=== PATIENT | male | born 1980 | race Caucasian/White ===

== ENCOUNTER 2017-04-17 13:29 | Outpatient (CLI) | payer MEDICAID | END 2017-04-17 23:59 | disposition home or self-care (01) | LOC: RAD 13:29 | PROVIDERS: ATTEND Nurse Practitioner Family | DX: R10.13 Epigastric pain (principal) | CPT/HCPCS: 76700 ==

== ENCOUNTER 2017-04-20 07:54 | Emergency (ER) | payer MEDICAID ==
[~2017-04-20] VITALS: Ht 188 cm; Wt 91.0 kg
[2017-04-20] MEDS ORDERED: iohexol 350MG/ML 100ml bottle IV ONE (09:14)
[2017-04-20] MEDS ORDERED: diatrozoate meglu/diatrozoate sod (37% iodine) 120ML oral solution PO ONE (09:25)
[2017-04-20] MEDS ORDERED: diatrozoate meglu/diatrozoate sod (37% iodine) 120ML oral solution ONE (09:31)
[2017-04-20] MEDS ORDERED: diatr meglu/diatrizoate 30ml oral sol.-(3 dose) bottle PO ONE (09:35)
[2017-04-20] MEDS ORDERED: diphenhydrAMINE 50 mg/ml inj IV ONE (09:55)
[2017-04-20] MEDS ORDERED: dexamethasone sod phosphate 10mg/ml inj IV STA (10:20)
[2017-04-20] MEDS ORDERED: famotidine/PF 10 mg/ml inj IV ONE (10:20)
[2017-04-20] MEDS ORDERED: predniSONE 20 mg tablet PO ONE (10:45)
[2017-04-20 12:15] VITALS: BP 104/58
[2017-04-21] MEDS ORDERED: prednisone 10mg tablet PO SCH (08:00)
== END 2017-04-20 12:47 | disposition home or self-care (01) ==
LOC: ER 07:55
DX: R10.13 Epigastric pain (principal)
CPT/HCPCS: 71250; 93978; 96374; 99284; J1200; J3490; J7030; J7512; Q9963; Q9967; J1100

== ENCOUNTER 2017-07-10 10:42 | Emergency (ER) | payer MEDICAID ==
[~2017-07-10] VITALS: Ht 198.1 cm; Wt 92.0 kg
[2017-07-10 11:25] LABS: BASOPHILS % (AUTO) 0.7 % (0-1); EOSINOPHILS # (AUTO) 0.1 X10'3 (0-0.9); EOSINOPHILS % (AUTO) 2.1 % (0-6); HEMATOCRIT 44.7 % (42.0-52.0); HEMOGLOBIN 15.6 g/dl (14.0-17.9); LYMPHOCYTES # (AUTO) 3.2 X10'3 (1.1-4.8); LYMPHOCYTES % (AUTO) 45.8 % (21-51); MEAN CORPUSCULAR HEMOGLOBIN 30.4 PG (27.0-31.0); MEAN CORPUSCULAR HGB CONC 34.9 % (33.0-36.5); MEAN CORPUSCULAR VOLUME 87.2 FL (78-98); MEAN PLATELET VOLUME 8.2 FL (7.4-10.4); MONOCYTES # (AUTO) 0.6 X10'3 (0-0.9); MONOCYTES % (AUTO) 7.8 % (2-12); NEUTROPHILS # (AUTO) 3.1 X10'3 (1.8-7.7); NEUTROPHILS % (AUTO) 43.6 % (42-75); PLATELET COUNT 209 X10'3 (140-440); RED BLOOD COUNT 5.13 X10'6 (4.70-6.10); RED CELL DISTRIBUTION WIDTH 13.7 % (11.5-14.5); WHITE BLOOD COUNT 7.1 X10'3 (4.5-11.0)
[2017-07-10 11:35] LABS: INR 1.1 INR; PROTHROMBIN TIME 11.2 SECONDS (9.0-12.0)
[2017-07-10 11:41] LABS: ALANINE AMINOTRANSFERASE 34 U/L (12-78); ALBUMIN 4.7 G/DL (3.4-5.0); ALBUMIN/GLOBULIN RATIO 1.5 (1.1-1.5); ALKALINE PHOSPHATASE 57 IU/L (46-116); AMYLASE 51 U/L (25-115); ANION GAP 7 (8-16); ASPARTATE AMINO TRANSFERASE 23 U/L (10-37); BLOOD UREA NITROGEN 20 MG/DL (7-18); BUN/CREATININE RATIO 20.8 (5.4-32.0); CALCIUM 9.5 MG/DL (8.5-10.1); CHLORIDE 105 MMOL/L (99-107); CREATININE 0.96 MG/DL (0.60-1.10); GLUCOSE 92 MG/DL (70-104); LIPASE 136 U/L (73-393); POTASSIUM 4.2 MMOL/L (3.5-5.1); SODIUM 142 MMOL/L (135-145); TOTAL CARBON DIOXIDE 30.5 MMOL/L (24-32); TOTAL PROTEIN 7.8 G/DL (6.4-8.2); eGFR 88 ML/MIN
[2017-07-10] MEDS ORDERED: DICY10CA88 PO (12:21)
[2017-07-10] MEDS ORDERED: SUCR1ORA2 PO (12:21)
[2017-07-10 12:36] LABS: CLARITY,URINE CLEAR (Clear); COLOR,URINE YELLOW (Yellow); GLUCOSE, URINE NEGATIVE (Neg); KETONES,URINE NEGATIVE (Neg); LEUKOCYTE ESTERASE ,URINE NEGATIVE (Neg); NITRITES, URINE NEGATIVE (Neg); OCCULT BLOOD,URINE NEGATIVE (Neg); PROTEIN,URINE NEGATIVE (Neg); UROBILINOGEN,URINE 0.2 E.U/dL (0.2-1.0)
[2017-07-10 12:39] LABS: UA COLLECTION TYPE CLN CATCH MIDSTREAM
[2017-07-10 12:45] VITALS: BP 110/56
== END 2017-07-10 12:50 | disposition home or self-care (01) ==
LOC: ER 10:42
DX: R10.13 Epigastric pain (principal)
CPT/HCPCS: 36415; 74176; 76700; 80053; 81003; 82150; 83690; 85025; 85610; 99285

== ENCOUNTER 2017-07-24 07:15 | Emergency (ER) | payer MEDICAID ==
[~2017-07-24] VITALS: Ht 6206.4 cm; Wt 91.0 kg
[~2017-07-24 07:15] MED LIST: DICY10CA88 PO; SUCR1ORA2 PO
[2017-07-24] MEDS ORDERED: acetaminophen 325mg tablet PO ONE (07:50)
[2017-07-24 07:58] VITALS: BP 104/67
[2017-07-25] MEDS ORDERED: NAPR-56 PO (12:02)
[2017-07-25] MEDS ORDERED: HYDR-569 PO (12:02)
== END 2017-07-24 08:18 | disposition home or self-care (01) ==
LOC: ER 07:16
DX: S93.401A Sprain of unspecified ligament of right ankle, initial encounter (principal); X50.1XXA Overexertion from prolonged static or awkward postures, initial encounter; Y93.67 Activity, basketball; Y92.89 Other specified places as the place of occurrence of the external cause; Y99.8 Other external cause status
CPT/HCPCS: 29515; 73610; 99284

== ENCOUNTER 2017-09-01 08:59 | Outpatient (CLI) | payer MEDICAID ==
[2017-09-01 08:58] VITALS: BP 123/64
[~2017-09-01 08:59] MED LIST changes: -DICY10CA88 PO; +HYDR-569 PO
== END 2017-09-01 09:45 | disposition home or self-care (01) ==
LOC: ORTHO 08:59
PROVIDERS: ATTEND Nurse Practitioner Family
DX: S93.491D Sprain of other ligament of right ankle, subsequent encounter (principal); K21.9 Gastro-esophageal reflux disease without esophagitis; Z91.19 Patient's noncompliance with other medical treatment and regimen; X58.XXXD Exposure to other specified factors, subsequent encounter
CPT/HCPCS: 99213

== ENCOUNTER 2017-10-15 12:40 | Outpatient (CLI) | payer MEDICAID | END 2017-10-15 23:59 | disposition home or self-care (01) | LOC: RAD 12:40 | PROVIDERS: ATTEND Nurse Practitioner Family | DX: M25.371 Other instability, right ankle (principal); S93.491A Sprain of other ligament of right ankle, initial encounter; M25.471 Effusion, right ankle; R60.0 Localized edema; J45.909 Unspecified asthma, uncomplicated; M21.6X1 Other acquired deformities of right foot; Z87.891 Personal history of nicotine dependence; X58.XXXA Exposure to other specified factors, initial encounter; Y93.89 Activity, other specified; Y92.89 Other specified places as the place of occurrence of the external cause; Y99.8 Other external cause status | CPT/HCPCS: 73721 ==

== ENCOUNTER 2017-11-13 09:10 | Outpatient (CLI) | payer MEDICAID ==
[2017-11-13 09:07] VITALS: BP 122/88
== END 2017-11-13 09:42 | disposition home or self-care (01) ==
LOC: ORTHO 09:10
PROVIDERS: ATTEND Nurse Practitioner Family
DX: S93.491D Sprain of other ligament of right ankle, subsequent encounter (principal); K21.9 Gastro-esophageal reflux disease without esophagitis; J45.909 Unspecified asthma, uncomplicated; Z91.041 Radiographic dye allergy status; X58.XXXD Exposure to other specified factors, subsequent encounter; Y93.67 Activity, basketball
CPT/HCPCS: 99213